=== PATIENT | male | born 1965 | race Two or more races ===

== ENCOUNTER 2021-03-01 09:31 | Emergency (ER) | payer OTHER ==
[~2021-03-01] VITALS: Ht 160 cm; Wt 83.9 kg
[~2021-03-01 09:31] MED LIST: KETO10TA2 PO; LIALDA1.2 G; NORVASC10 MG
[2021-03-01] MEDS ORDERED: METOPROLOL SUCC50 MG PO (09:50)
[2021-03-01] MEDS ORDERED: CIALIS10 MG PO (09:51)
== END 2021-03-01 12:45 | disposition home or self-care (01) ==
LOC: ER 09:31
DX: K52.89 Other specified noninfective gastroenteritis and colitis (principal)

== ENCOUNTER 2022-10-04 08:58 | Emergency (ER) | payer OTHER ==
[~2022-10-04] VITALS: Ht 160 cm; Wt 83.9 kg
[~2022-10-04 08:58] MED LIST changes: +CIALIS10 MG PO; +METOPROLOL SUCC50 MG PO
== END 2022-10-04 15:56 | disposition home or self-care (01) ==
LOC: ER 08:58
DX: K62.5 Hemorrhage of anus and rectum (principal); K57.32 Diverticulitis of large intestine without perforation or abscess without bleeding; N28.1 Cyst of kidney, acquired; K42.9 Umbilical hernia without obstruction or gangrene; K40.90 Unilateral inguinal hernia, without obstruction or gangrene, not specified as recurrent; I10 Essential (primary) hypertension